=== PATIENT | male | born 1985 | race Caucasian/White ===

== ENCOUNTER 2017-04-02 10:33 | Emergency (ER) | payer OTHER ==
[~2017-04-02] VITALS: Ht 170.2 cm; Wt 75.0 kg
[~2017-04-02 10:33] MED LIST: FILG300D2 SQ
[2017-04-02] MEDS ORDERED: PALI156D IM (10:57)
[2017-04-02] MEDS ORDERED: DOCU250C91 PO (10:57)
[2017-04-02] MEDS ORDERED: VIST50 PO (10:57)
[2017-04-02] MEDS ORDERED: QUET25TA PO (10:57)
[2017-04-02] MEDS ORDERED: OLAN10TA3 PO (10:57)
[2017-04-02] MEDS ORDERED: TEMA15CA PO (10:57)
[2017-04-02 11:52] LABS: HEMATOCRIT 42.4 % (41-53); HEMOGLOBIN 14.3 g/dL (13.5-17.5); MEAN CORPUSCULAR HEMOGLOBIN 31.7 pg (26.0-34.0); MEAN CORPUSCULAR HGB CONC 33.7 G/dL (31.0-37.0); MEAN CORPUSCULAR VOLUME 94 fL (80-100); PLATELET COUNT (AUTO) 205 K/uL (150-450); RED CELL DISTRIBUTION WIDTH 12.1 % (11.5-14.5)
[2017-04-02 11:59] LABS: ANION GAP 5 mmol/L (8-16); CALCIUM, TOTAL 8.9 mg/dL (8.8-10.5); CARBON DIOXIDE 30 mmol/L (22-29); CHLORIDE 103 mmol/L (98-107); CREATININE 0.97 mg/dL (0.60-1.30); GLOMERULAR FILTR. RATE CALC > 60 mL/min (>60); GLUCOSE,RANDOM 100 mg/dL (70-110); POTASSIUM 4.6 mmol/L (3.5-5.1); SODIUM SERUM 138 mmol/L (136-145); UREA NITROGEN, BLOOD 14 mg/dL (7-18)
[2017-04-02 12:05] LABS: ALANINE AMINOTRANSFERASE 21 U/L (12-78); ALKALINE PHOSPHATASE 73 U/L (46-116); ASPARTATE AMINOTRANSFERASE 15 U/L (15-37); BILIRUBIN,TOTAL 0.5 mg/dL (0.1-1.0); TOTAL PROTEIN, SERUM 7.3 g/dL (6.4-8.2)
[2017-04-02 12:28] LABS: BAND NEUTROPHILS % (MANUAL) 1 % (1-5); LYMPHOCYTES % (MANUAL) 80 % (22-44); MONOCYTES % (MANUAL) 3 % (2-9); REACTIVE LYMPHOCYTES 10 % (0-0); SEGMENTED NEUTROPHILS % 6 % (40-70)
[2017-04-02 12:40] LABS: PATHOLOGY REVIEW, DIFF YES
[2017-04-02 14:49] VITALS: BP 112/76
== END 2017-04-02 15:49 | disposition home or self-care (01) ==
LOC: EMS 10:36
DX: D70.9 Neutropenia, unspecified (principal); F20.9 Schizophrenia, unspecified
CPT/HCPCS: 99284

== ENCOUNTER 2024-09-28 00:13 | Inpatient (IN) | payer MEDICARE, MEDICAID ==
[~2024-09-28] VITALS: Ht 170.2 cm; Wt 95.3 kg
[~2024-09-28 00:13] MED LIST changes: +DOCU-412 PO; +HYDR50CA7 PO; +OLAN10TA74 PO; +PALI156D IM; +QUET25TA PO; +TEMA15CA PO
[2024-09-28] MEDS ORDERED: ZOLPIDEM TARTRATE 10 MG TABLET PO PRN (02:00)
[2024-09-28 03:08] VITALS: BP 115/83; PULSE 64; RESP 16; TEMP 98.7; O2SAT 100
[2024-09-28 03:09] VITALS: BP 115/83; PULSE 64; RESP 16; TEMP 98.7; O2SAT 100
[2024-09-28 03:20] VITALS: BP 115/83; PULSE 64; RESP 16; TEMP 98.7; O2SAT 100
[2024-09-28] MEDS ORDERED: MAG HYDROX/ALUMINUM HYD/SIMETH ES 30 ML SUSPENSION UDCUP PO PRN (08:00)
[2024-09-28] MEDS ORDERED: PETROLATUM,WHITE 28 GM JELLY TP PRN (08:00)
[2024-09-28] MEDS ORDERED: MAGNESIUM HYDROXIDE SUSPENSION 30 ML UDCUP PO PRN (08:00)
[2024-09-28] MEDS ORDERED: ACETAMINOPHEN 325 MG TABLET PO PRN (08:00)
[2024-09-28] MEDS ORDERED: BENZOCAINE/MENTHOL [CEPACOL] LOZENGE PO PRN (08:00)
[2024-09-28] MEDS ORDERED: BACITRACIN 28 GM OINTMENT TP PRN (08:00)
[2024-09-28] MEDS ORDERED: DOCUSATE SODIUM 100 MG CAPSULE PO PRN (08:00)
[2024-09-28] MEDS ORDERED: ALBUTEROL SULFATE HFA 90 MCG/PUFF 8 GM INHALER IH PRN (08:00)
[2024-09-28] MEDS ORDERED: IBUPROFEN 600 MG TABLET PO PRN (08:00)
[2024-09-28] MEDS ORDERED: ONDANSETRON 4 MG TABLET PO PRN (08:00)
[2024-09-28] MEDS ORDERED: OMEPRAZOLE 20 MG CAPSULE PO PRN (08:00)
[2024-09-28] MEDS ORDERED: LOPERAMIDE HCL 2 MG CAPSULE PO PRN (08:00)
[2024-09-28 08:50] VITALS: BP 118/74; PULSE 74; RESP 18; TEMP 98; O2SAT 98
[2024-09-28 20:31] VITALS: BP 117/78; PULSE 71; RESP 17; TEMP 97.5; O2SAT 99
[2024-09-29 07:38] LABS: PLATELET COUNT (AUTO) 204 K/uL (150-450); RED BLOOD CELL COUNT(AUTO) 4.54 MIL/uL (4.50-5.90); RED CELL DISTRIBUTION WIDTH 14.0 % (11.5-14.5); WHITE BLOOD COUNT (AUTO) 5.1 K/uL (4.5-11.0)
[2024-09-29 08:09] LABS: ASPARTATE AMINOTRANSFERASE 18 U/L (15-37); CALCIUM, TOTAL 8.5 mg/dL (8.8-10.5); CHOL/HDL RATIO 3.2 (4.2-7.3); CREATININE 1.00 mg/dL (0.60-1.30); GLOMERULAR FILTR. RATE CALC > 60 mL/min (>60); GLUCOSE,RANDOM 86 mg/dL (70-110); LDL CHOL (CALC.) 75 mg/dL (0-130); SODIUM SERUM 140 mmol/L (136-145); TOTAL PROTEIN, SERUM 6.4 g/dL (6.4-8.2); UREA NITROGEN, BLOOD 10 mg/dL (7-18)
[2024-09-29 08:22] VITALS: BP 116/74; PULSE 61; RESP 19; TEMP 97.5; O2SAT 98
[2024-09-29 16:26] VITALS: BP 121/83; PULSE 86; RESP 17; TEMP 97.8; O2SAT 98
[2024-09-29 20:14] VITALS: BP 110/69; PULSE 79; RESP 16; TEMP 97.6; O2SAT 99
[2024-09-30 08:54] VITALS: BP 125/71; PULSE 61; RESP 18; TEMP 98; O2SAT 98
[2024-09-30 20:12] VITALS: BP 126/83; PULSE 83; RESP 18; TEMP 97.9; O2SAT 100
[2024-10-01 08:27] VITALS: BP 117/79; PULSE 81; RESP 16; TEMP 97.8; O2SAT 98
[2024-10-01 08:56] LABS: ALCOHOL, URINE DRUG SCREEN NEGATIVE (NEGATIVE); AMPHET/METH SCREEN,URINE NEGATIVE (NEGATIVE); APPEARANCE,URINE HAZY (CLEAR); BARBITURATE SCREEN, URINE NEGATIVE (NEGATIVE); CANNABINOID SCREEN,URINE NEGATIVE (NEGATIVE); COCAINE SCREEN,URINE NEGATIVE (NEGATIVE); GLUCOSE, URINE (UA) NEGATIVE (NEGATIVE); LEUKOCYTE ESTERASE ,URINE NEGATIVE (NEGATIVE); METHADONE SCREEN, URINE NEGATIVE (NEGATIVE); NITRATE,URINE NEGATIVE (NEGATIVE); OCCULT BLOOD,URINE NEGATIVE (NEGATIVE); PH,URINE DRUG SCREEN 5.5 (5.0-8.0); SPECIFIC GRAVITIY, URINE 1.025 (1.003-1.030)
[2024-10-01 20:24] VITALS: BP 102/78; PULSE 89; RESP 18; TEMP 97.9; O2SAT 98
[2024-10-02 08:33] VITALS: BP 105/67; PULSE 63; RESP 18; TEMP 96.9; O2SAT 97
[2024-10-02 20:07] VITALS: BP 127/88; PULSE 86; RESP 18; TEMP 98.1; O2SAT 96
[2024-10-03 08:17] VITALS: BP 114/69; PULSE 61; RESP 18; TEMP 97.9; O2SAT 98
[2024-10-03 20:29] VITALS: BP 125/76; PULSE 85; RESP 18; TEMP 99.7; O2SAT 99
[2024-10-04 08:07] VITALS: BP 103/70; PULSE 69; RESP 16; TEMP 98.3; O2SAT 97
[2024-10-04 20:14] VITALS: BP 115/76; PULSE 72; RESP 17; TEMP 98.2; O2SAT 98
[2024-10-05 08:16] VITALS: BP 110/60; PULSE 62; RESP 18; TEMP 97.9; O2SAT 97
[2024-10-05 20:29] VITALS: BP 127/84; PULSE 71; RESP 17; TEMP 98.4; O2SAT 99
[2024-10-06 08:24] VITALS: BP 109/70; PULSE 67; RESP 19; TEMP 98.3; O2SAT 100
[2024-10-06 20:11] VITALS: BP 111/80; PULSE 80; RESP 18; TEMP 97.8; O2SAT 98
[2024-10-07 08:26] VITALS: BP 114/68; PULSE 60; RESP 18; TEMP 99; O2SAT 99
[2024-10-07 20:09] VITALS: BP 105/78; PULSE 68; RESP 18; TEMP 97.2; O2SAT 98
[2024-10-08 08:48] VITALS: BP 110/67; PULSE 60; RESP 19; TEMP 98; O2SAT 97
[2024-10-26] MEDS ORDERED: PALIPERIDONE PALMITATE 156 MG/ML SYRINGE IM SCH (09:00)
== END 2024-10-08 17:10 | disposition home or self-care (01) | DRG 885 ==
LOC: UNDOADMIN 02:03 → B2X 02:03
PROVIDERS: ADMIT Psychiatry & Neurology Psychiatry; ATTEND Psychiatry & Neurology Psychiatry
PROC: GZHZZZZ Group Psychotherapy (ICD-10-PCS; principal; 2024-09-28)
PROC: GZ52ZZZ Individual Psychotherapy, Cognitive (ICD-10-PCS; 2024-10-04)
DX: F20.0 Paranoid schizophrenia (principal); R45.851 Suicidal ideations; E66.9 Obesity, unspecified; K59.00 Constipation, unspecified; D70.9 Neutropenia, unspecified; G47.00 Insomnia, unspecified; Z88.8 Allergy status to other drugs, medicaments and biological substances; Z91.048 Other nonmedicinal substance allergy status; Z68.32 Body mass index [BMI] 32.0-32.9, adult; F41.9 Anxiety disorder, unspecified
CPT/HCPCS: 80053; 80061; 80307; 81003; 83036; 84439; 84443; 85025